=== PATIENT | female | born 1975 | race Caucasian/White ===

== ENCOUNTER 2016-12-22 08:33 | Emergency (ER) | payer SELFPAY ==
[2016-12-22 08:41] VITALS: BP 119/72
== END 2016-12-22 09:09 | disposition home or self-care (01) ==
LOC: ED 08:33
DX: H66.91 Otitis media, unspecified, right ear (principal); H72.91 Unspecified perforation of tympanic membrane, right ear

== ENCOUNTER 2017-11-05 07:51 | Emergency (ER) | payer OTHER ==
[~2017-11-05] VITALS: Ht 154.9 cm; Wt 81.8 kg
[2017-11-05 08:35] LABS: BASOPHIL % 0.3 % (0-2); PLATELET COUNT 283 x10^3mcL (130-400); RED CELL DISTRIBUTION WIDTH 13.1 % (11.5-14.5)
[2017-11-05 09:24] LABS: CALCIUM 9.4 mg/dL (8.5-10.1); CHLORIDE SERUM 103 mmol/L (98-107); CREATININE SERUM 0.7 mg/dL (0.6-1.0); GFR1 > 60 mL/min; GLUCOSE SERUM 132 mg/dL (74-106); POTASSIUM SERUM 3.3 mmol/L (3.5-5.1); SODIUM SERUM 138 mmol/L (136-145)
[2017-11-05 09:36] LABS: ALKALINE PHOSPHATASE 73 U/L (46-116); ALT/SGPT 100 U/L (14-59); AST/SGOT 55 U/L (15-37); TOTAL PROTEIN, SERUM 8.1 g/dL (6.4-8.2)
[2017-11-05 13:02] VITALS: BP 121/69
[2017-11-05 13:34] LABS: AMPHETAMINE QUAL UR NONE DETECTED (See below)
== END 2017-11-05 13:02 | disposition home or self-care (01) ==
LOC: ED 07:51
PROVIDERS: Emergency Medicine
DX: R06.02 Shortness of breath (principal); Z90.710 Acquired absence of both cervix and uterus
CPT/HCPCS: 83880; J1885; Q0092; Q9967

== ENCOUNTER 2018-02-07 01:37 | Emergency (ER) | payer OTHER ==
[~2018-02-07] VITALS: Ht 154.9 cm; Wt 83.5 kg
[2018-02-07 01:41] VITALS: Ht 154.9 cm; Wt 83.5 kg
[2018-02-07 02:32] LABS: CALCIUM 9.1 mg/dL (8.5-10.1); CARBON DIOXIDE 27.2 mmol/L (21-32); CHLORIDE SERUM 103 mmol/L (98-107); CREATININE SERUM 0.7 mg/dL (0.6-1.0); GFR1 > 60 mL/min; GLUCOSE SERUM 186 mg/dL (74-106); POTASSIUM SERUM 3.6 mmol/L (3.5-5.1); SODIUM SERUM 141 mmol/L (136-145)
[2018-02-07 02:38] LABS: ALKALINE PHOSPHATASE 83 U/L (46-116); ALT/SGPT 95 U/L (14-59); AST/SGOT 35 U/L (15-37); BILIRUBIN TOTAL 0.3 mg/dL (0.20-1.00); LIPASE 143 IU/L (73-393)
[2018-02-07 02:39] LABS: TOTAL PROTEIN, SERUM 8.3 g/dL (6.4-8.2)
[2018-02-07 03:29] VITALS: BP 119/57
== END 2018-02-07 03:29 | disposition home or self-care (01) ==
LOC: ED 01:37
PROVIDERS: Emergency Medicine
DX: K80.20 Calculus of gallbladder without cholecystitis without obstruction (principal); Z98.890 Other specified postprocedural states; Z90.710 Acquired absence of both cervix and uterus
CPT/HCPCS: J1885; Q0092

== ENCOUNTER 2018-02-08 09:14 | Emergency (ER) | payer OTHER ==
[~2018-02-08] VITALS: Ht 154.9 cm; Wt 81.6 kg
[2018-02-08 09:21] VITALS: Ht 154.9 cm; Wt 81.6 kg
[2018-02-08 10:11] LABS: CALCIUM 9.2 mg/dL (8.5-10.1); CARBON DIOXIDE 25.9 mmol/L (21-32); CHLORIDE SERUM 103 mmol/L (98-107); CREATININE SERUM 0.6 mg/dL (0.6-1.0); GFR1 > 60 mL/min; GLUCOSE SERUM 129 mg/dL (74-106); POTASSIUM SERUM 3.8 mmol/L (3.5-5.1); SODIUM SERUM 139 mmol/L (136-145)
[2018-02-08 10:15] LABS: ALBUMIN 4.6 g/dL (3.4-5.0); ALKALINE PHOSPHATASE 89 U/L (46-116); ALT/SGPT 111 U/L (14-59); AST/SGOT 48 U/L (15-37); BILIRUBIN TOTAL 0.67 mg/dL (0.20-1.00); LIPASE 125 IU/L (73-393)
[2018-02-08 10:16] LABS: TOTAL PROTEIN, SERUM 9.3 g/dL (6.4-8.2)
[2018-02-08 10:45] LABS: BASOPHIL % 0.3 % (0-2); PLATELET COUNT 265 x10^3mcL (130-400); RED CELL DISTRIBUTION WIDTH 12.6 % (11.5-14.5)
[2018-02-08 11:20] VITALS: BP 136/89
== END 2018-02-08 11:20 | disposition home or self-care (01) ==
LOC: ED 09:14
PROVIDERS: Emergency Medicine
DX: K80.20 Calculus of gallbladder without cholecystitis without obstruction (principal); Z90.710 Acquired absence of both cervix and uterus
CPT/HCPCS: J1885; J2405; J3490; J7030

== ENCOUNTER 2018-11-25 11:01 | Emergency (ER) | payer OTHER ==
[~2018-11-25] VITALS: Ht 152.4 cm; Wt 77.1 kg
[2018-11-25 11:03] VITALS: Ht 152.4 cm; Wt 77.1 kg
[2018-11-25 12:28] VITALS: BP 118/71
== END 2018-11-25 12:55 | disposition home or self-care (01) ==
LOC: ED 11:01
DX: M72.2 Plantar fascial fibromatosis (principal); Z98.890 Other specified postprocedural states; Z90.710 Acquired absence of both cervix and uterus
CPT/HCPCS: Q0092

== ENCOUNTER 2019-01-13 08:30 | Inpatient (IN) | payer OTHER ==
[~2019-01-13] VITALS: Ht 154.9 cm; Wt 75.7 kg
[2019-01-13 09:06] LABS: BASOPHIL % 0.3 % (0-2); PLATELET COUNT 255 x10^3mcL (130-400); RED CELL DISTRIBUTION WIDTH 12.2 % (11.5-14.5)
[2019-01-13 09:53] LABS: ALKALINE PHOSPHATASE 158 U/L (46-116); ALT/SGPT 196 U/L (14-59); AMYLASE 58 U/L (25-115); AST/SGOT 122 U/L (15-37); BILIRUBIN TOTAL 0.68 mg/dL (0.20-1.00); CARBON DIOXIDE 27.7 mmol/L (21-32); CHLORIDE SERUM 102 mmol/L (98-107); CREATININE SERUM 0.6 mg/dL (0.6-1.0); GFR1 > 60 mL/min; GLUCOSE SERUM 192 mg/dL (74-106); LIPASE 127 IU/L (73-393); POTASSIUM SERUM 4.1 mmol/L (3.5-5.1); SODIUM SERUM 139 mmol/L (136-145)
[2019-01-13 10:08] LABS: TOTAL PROTEIN, SERUM 8.5 g/dL (6.4-8.2)
[2019-01-13 10:16] LABS: CALCIUM 9.7 mg/dL (8.5-10.1)
[2019-01-13 14:34] VITALS: BP 107/52
[2019-01-13 14:37] VITALS: Ht 154.9 cm; Wt 75.7 kg
[2019-01-13 16:53] VITALS: BP 111/61
[2019-01-13 22:16] VITALS: BP 127/70
[2019-01-14 06:22] LABS: BASOPHIL % 0.2 % (0-2); PLATELET COUNT 260 x10^3mcL (130-400); RED CELL DISTRIBUTION WIDTH 12.2 % (11.5-14.5)
[2019-01-14 06:40] LABS: ALBUMIN 3.7 g/dL (3.4-5.0); BILIRUBIN DIRECT 0.23 mg/dL (0.0-0.2); BILIRUBIN TOTAL 1.1 mg/dL (0.20-1.00); TOTAL PROTEIN, SERUM 7.7 g/dL (6.4-8.2)
[2019-01-14 06:50] LABS: CARBON DIOXIDE 26.8 mmol/L (21-32); CHLORIDE SERUM 100 mmol/L (98-107); CREATININE SERUM 0.6 mg/dL (0.6-1.0); GFR1 > 60 mL/min; GLUCOSE SERUM 157 mg/dL (74-106); POTASSIUM SERUM 3.9 mmol/L (3.5-5.1); SODIUM SERUM 139 mmol/L (136-145)
[2019-01-14 06:53] VITALS: BP 112/56
[2019-01-14 08:26] VITALS: BP 123/59
[2019-01-14 16:36] VITALS: BP 121/54
[2019-01-14 20:50] VITALS: BP 119/63
[2019-01-15 05:19] VITALS: BP 120/62
[2019-01-15 06:20] LABS: BASOPHIL % 0.3 % (0-2); PLATELET COUNT 244 x10^3mcL (130-400); RED CELL DISTRIBUTION WIDTH 12.3 % (11.5-14.5)
[2019-01-15 06:53] LABS: ALBUMIN 3.6 g/dL (3.4-5.0); ALKALINE PHOSPHATASE 108 U/L (46-116); ALT/SGPT 169 U/L (14-59); AST/SGOT 91 U/L (15-37); BILIRUBIN TOTAL 1.4 mg/dL (0.20-1.00); CALCIUM 8.9 mg/dL (8.5-10.1); CARBON DIOXIDE 26.5 mmol/L (21-32); CHLORIDE SERUM 102 mmol/L (98-107); CREATININE SERUM 0.6 mg/dL (0.6-1.0); GFR1 > 60 mL/min; GLUCOSE SERUM 140 mg/dL (74-106); POTASSIUM SERUM 3.3 mmol/L (3.5-5.1); SODIUM SERUM 140 mmol/L (136-145); TOTAL PROTEIN, SERUM 7.6 g/dL (6.4-8.2)
[2019-01-15 08:38] VITALS: BP 125/70
[2019-01-15] MEDS ORDERED: APAP/HYDROCODON1 T13 PO (08:54)
[2019-01-15 09:13] VITALS: BP 125/70
== END 2019-01-15 13:03 | disposition home or self-care (01) | DRG 263 ==
LOC: ED 08:30 → MU 11:50
PROVIDERS: Internal Medicine; Internal Medicine Pulmonary Disease; Student in an Organized Health Care Education/Training Program; Surgery; ADMIT Internal Medicine Pulmonary Disease
PROC: 0FT44ZZ Resection of Gallbladder, Percutaneous Endoscopic Approach (ICD-10-PCS; principal; 2019-01-13 12:00)
DX: K80.00 Calculus of gallbladder with acute cholecystitis without obstruction (principal); E11.9 Type 2 diabetes mellitus without complications; I10 Essential (primary) hypertension; E66.9 Obesity, unspecified
CPT/HCPCS: 82962; G0378; J0330; J0690; J1170; J1650; J2175; J2250; J2270; J2405; J2704; J2710; J3010; J3490; J7030; Q0092

== ENCOUNTER 2020-04-13 07:26 | Emergency (ER) | payer OTHER ==
[~2020-04-13] VITALS: Ht 152.4 cm; Wt 72.6 kg
[~2020-04-13 07:26] MED LIST: APAP/HYDROCODON1 T13 PO
[2020-04-13 07:34] VITALS: Ht 152.4 cm; Wt 72.6 kg
[2020-04-13 10:03] VITALS: BP 95/59
== END 2020-04-13 10:03 | disposition home or self-care (01) ==
LOC: ED 07:26
DX: T23.201A Burn of second degree of right hand, unspecified site, initial encounter (principal); T21.22XA Burn of second degree of abdominal wall, initial encounter; E11.9 Type 2 diabetes mellitus without complications; Z87.19 Personal history of other diseases of the digestive system; Z90.710 Acquired absence of both cervix and uterus; Z98.890 Other specified postprocedural states; X10.2XXA Contact with fats and cooking oils, initial encounter; Y93.89 Activity, other specified; Y92.89 Other specified places as the place of occurrence of the external cause; Y99.8 Other external cause status